=== PATIENT | male | born 1935 | race Caucasian/White ===

== ENCOUNTER 2018-11-04 08:21 | Emergency (ER) | payer MEDICARE, OTHER ==
[2018-11-04] MEDS ORDERED: Lidocaine 2% Jelly 10 ML Urojet ONE (09:23)
--- NOTE | 2018-11-04 09:54 | EDM.PDOC ---
ED HPI GENERAL MEDICAL PROBLEM - General Chief Complaint: Genitourinary Problem Stated Complaint: PROSTATE AND DIARRHEA Time Seen by Provider: 11/04/18 09:50 Source of Information: Reports: Patient History Limitations: Reports: No Limitations - History of Present Illness INITIAL COMMENTS - FREE TEXT/NARRATIVE: pt has been having loose stools. He has been dribbling from the penis for the past 2 days. He has not emptyed his bladder and today he is very uncomfortable. He was found to have over 700 cc in his bladder. Onset: Gradual, Other ( This hs been going on for the past 2 days. He has had problems in the past and has had a cath in the past. He does have some catheters with him that he was given with him. These are a siz 14 and for straight cathing. ) Duration: Hour(s): Location: Reports: Abdomen, Other (pt is quite uncomfortable in his bladder. ) Associated Symptoms: Reports: Other (pt is having diarrhea. ) Bladder Pain Score (Numeric/FACES): 7 - Related Data Allergies Allergy/AdvReac Type Severity Reaction Status Date / Time No Known Allergies Allergy Verified 11/04/18 09:06 Home Meds: Home Meds Tamsulosin [Flomax] 0.4 mg PO DAILY #30 cap.er 04/01/18 [Rx] Doxazosin Mesylate [Cardura] 1 tab PO DAILY 11/04/18 [History] Finasteride [Proscar] 1 tab PO DAILY 11/04/18 [History] amLODIPine Besylate [Amlodipine Besylate] 5 mg PO DAILY 11/04/18 [History] Past Medical History Cardiovascular History: Reports: Hypertension Gastrointestinal History: Reports: Other (See Below) Other Gastrointestinal History: recent diarrhea Genitourinary History: Reports: Prostate Disorder Other Genitourinary History: states enlarged prostate hard time peeeing Musculoskeletal History: Reports: Fracture Psychiatric History: Reports: Depression - Infectious Disease History Infectious Disease History: Reports: Chicken Pox - Past Surgical History HEENT Surgical History: Reports: Tonsillectomy Social & Family History - Tobacco Use Smoking Status *Q: Never Smoker - Caffeine Use Caffeine Use: Reports: Coffee - Recreational Drug Use Recreational Drug Use: No - Living Situation & Occupation Living situation: Reports: Occupation: Retired ( of cancer 10 or 11 years ago, 2 son, Nikolay lives in [place], [place], and Lucius lives in [place], [place]. lives alone in [facility] ED ROS GENERAL - Review of Systems Review Of Systems: See Below Constitutional: Reports: Weakness, Other (pt has abdomanal pain but he has a distended bladder. ) HEENT: Reports: No Symptoms Respiratory: Reports: No Symptoms Cardiovascular: Reports: No Symptoms Endocrine: Reports: No Symptoms GI/Abdominal: Reports: Abdominal Pain, Other (pt has a distended bladder. ) : Reports: No Symptoms Musculoskeletal: Reports: No Symptoms Skin: Reports: No Symptoms Neurological: Reports: No Symptoms ED EXAM, GI/ABD - Physical Exam Exam: See Below Text/Narrative:: pt arrived very uncomfortable with a distended bladder and over 700 cc of urine in the bladder. Exam Limited By: No Limitations General Appearance: Alert, Anxious Ears: Normal TMs Nose: Normal Inspection Throat/Mouth: Normal Inspection Head: Atraumatic Neck: Normal Inspection Respiratory/Chest: No Respiratory Distress Cardiovascular: Regular Rate, Rhythm GI/Abdominal Exam: Other (pt has a distended bladder and is tender over the bladder site. ) (Male) Exam: Other ( distended bladder. ) Rectal (Males) Exam: Deferred, Other (pt states the stool is very watery. ) Back Exam: Normal Inspection Extremities: Normal Inspection Neurological: Alert, Oriented, Normal Cognition Psychiatric: Normal Affect Course - Vital Signs Last Recorded V/S: Last Vital Signs Temp 36.2 C 11/04/18 10:08 Pulse 91 11/04/18 11:17 Resp 16 11/04/18 11:17 BP 130/69 11/04/18 11:17 Pulse Ox 97 11/04/18 11:17 - Orders/Labs/Meds Orders: Active Orders 24 hr Category Date Time Status Bladder Scan [RC] ASDIRECTED Care 11/04/18 08:40 Active CLOSTRIDIUM DIFFICILE BY PCR [RM] Stat Lab 11/04/18 11:00 Ordered CULTURE URINE [RM] Stat Lab 11/04/18 10:50 Received Isolation [COMM] Stat Oth 11/04/18 11:01 Ordered Labs: Laboratory Tests 11/04/18 11/04/18 11/04/18 Range/Units 09:45 09:45 10:04 WBC 11.1 H (4.5-11.0) K/uL RBC 4.68 (4.30-5.90) M/uL Hgb 13.7 (12.0-15.0) g/dL Hct 42.0 (40.0-54.0) % MCV 90 (80-98) fL MCH 29 (27-31) pg MCHC 33 (32-36) % Plt Count 241 (150-400) K/uL Neut % (Auto) 88 H (36-66) % Lymph % (Auto) 2 L (24-44) % [place] % (Auto) 10 H (2-6) % Eos % (Auto) 0 L (2-4) % Baso % (Auto) 0 (0-1) % Sodium 143 (140-148) mmol/L Potassium 4.2 (3.6-5.2) mmol/L Chloride 104 (100-108) mmol/L Carbon Dioxide 27 (21-32) mmol/L Anion Gap 12.4 (5.0-14.0) mmol/L BUN 36 H (7-18) mg/dL Creatinine 1.2 (0.8-1.3) mg/dL Est Cr Clr Drug Dosing 38.47 mL/min Estimated GFR (MDRD) 58 L (>60) Glucose 130 H (74-106) mg/dL Calcium 9.3 (8.5-10.1) mg/dL Total Bilirubin 1.0 (0.2-1.0) mg/dL AST 20 (15-37) U/L ALT 22 (12-78) U/L Alkaline Phosphatase 99 (46-116) U/L Total Protein 6.9 (6.4-8.2) g/dL Albumin 4.0 (3.4-5.0) g/dL Globulin 2.9 (2.3-3.5) g/dL Albumin/Globulin Ratio 1.4 (1.2-2.2) Urine Color Yellow Urine Appearance Cloudy Urine pH 7.0 (4.5-8.0) Ur Specific [place] 1.010 (1.008-1.030) Urine Protein 30 H (NEGATIVE) mg/dL Urine Glucose (UA) Normal (NEGATIVE) mg/dL Urine Ketones 50 H (NEGATIVE) mg/dL Urine Occult Blood Large (NEGATIVE) Urine Nitrite Negative (NEGAITVE) Urine Bilirubin Negative (NEGATIVE) Urine Urobilinogen Normal (NORMAL) mg/dL Ur Leukocyte Esterase Negative (NEGATIVE) Urine RBC 5-10 H (0-5) Urine WBC 0-5 (0-5) Ur Epithelial Cells Not seen Amorphous Sediment Many Urine Bacteria Moderate Urine Mucus Not seen Meds: Medications Discontinued Medications Generic Name Dose Route Start Last Admin Trade Name Mario PRN Reason Stop Dose Admin Lidocaine HCl Confirm 11/04/18 09:23 11/04/18 10:16 Xylocaine 2% Jelly Administered 11/04/18 09:24 Not Given Dose 10 ml .ROUTE .STK-MED ONE Lidocaine HCl 10 ml 11/04/18 10:10 11/04/18 09:30 Xylocaine 2% Jelly MUCMEM 11/04/18 10:11 10 ml ONETIME ONE Administration - Re-Assessments/Exams Free Text/Narrative Re-Assessment/Exam: 11/04/18 11:04 Pt had a size 14 silicone cath inserted with difficulty. 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 He also is very tight just outside of the bladder. He did drain well. His urine had some bacteria. The urine was cultured and he will be covered with antibiotic therapy. Departure - Departure Time of Disposition: 10:56 Disposition: Home, Self-Care 01 Condition: Fair Clinical Impression: Urinary retention, Acute diarrhea - Discharge Information Referrals: PCP,None [Primary Care Provider] - Forms: ED Department Discharge Care Plan Goals: appt at the [facility] in [place] in 2 days for possible removal of the henry and referal to the urologist. He should push fluids. Cipro 500 mg bid for 7 days/ Use imodium 2 tabs after each loose stool. If he has persistent diarrhea when he is seen in [place] stool studies should be done. - My Orders Last 24 Hours: My Active Orders 11/04/18 08:40 Bladder Scan [RC] ASDIRECTED 11/04/18 10:50 CULTURE URINE [RM] Stat 11/04/18 11:00 CLOSTRIDIUM DIFFICILE BY PCR [RM] Stat 11/04/18 11:01 Isolation [COMM] Stat - Assessment/Plan Last 24 Hours: My Active Orders 11/04/18 08:40 Bladder Scan [RC] ASDIRECTED 11/04/18 10:50 CULTURE URINE [RM] Stat 11/04/18 11:00 CLOSTRIDIUM DIFFICILE BY PCR [RM] Stat 11/04/18 11:01 Isolation [COMM] Stat
[2018-11-04] MEDS ORDERED: Lidocaine 2% Jelly 10 ML Urojet MUCMEM ONE (10:10)
== END 2018-11-04 12:13 | disposition home or self-care (01) ==
LOC: JP.ED 08:21
DX: R19.7 Diarrhea, unspecified (principal); I10 Essential (primary) hypertension; F32.9 Major depressive disorder, single episode, unspecified; Z79.899 Other long term (current) drug therapy
CPT/HCPCS: 36415; 51702; 51798; 80053; 81001; 85025; 87086; 99284